=== PATIENT | male | born 1955 | race Caucasian/White ===

== ENCOUNTER 2020-01-31 08:47 | Inpatient (IN) | payer OTHER ==
--- NOTE | 2020-01-31 09:03 | BHS.RME ---
Substance Use & Tx History - Substance Use History Alcohol Substance amount: 1/2 pint vodka Frequency of use: Daily Substance route: Oral Date of Last Use: 01/31/20 Xanax Substance amount: 1 mg 2 tab s Frequency of use: Daily Substance route: Oral Date of Last Use: 01/30/20 Physical/Psych/Mental Status - Behavior General Behavior: Increased activity (restlessness, agitation) Eye Contact: Normal - Cooperativeness Cooperativeness: Cooperative - Thinking Thought Processes: Tight, Logical, Goal Directed Thought content: Future oriented - Physical Health Problems Is patient presently having any pain?: No Does patient presently have any injuries (include location): No Does patient currently have a fever: No Is patient : No CIWA Nausea/Vomitin-No Nausea/No Vomiting Muscle Tremors: 1-None Visible, but [place] Anxiety: 3 Agitation: 3 Paroxysmal Sweats: 4-Forehead w/Sweat Beads Orientation: 0-Oriented Tacttile Disturbances: 0-None Auditory Disturbances: 0-None Visual Disturbances: 0-None Headache: 0-None Present CIWA-Ar Total Score: 11
--- NOTE | 2020-01-31 09:48 | HP ---
CIWA Score Nausea/Vomitin-No Nausea/No Vomiting Muscle Tremors: 1-None Visible, but [place] Anxiety: 3 Agitation: 3 Paroxysmal Sweats: 4-Forehead w/Sweat Beads Orientation: 0-Oriented Tacttile Disturbances: 0-None Auditory Disturbances: 0-None Visual Disturbances: 0-None Headache: 0-None Present CIWA-Ar Total Score: 11 - Admission Criteria OASAS Guidelines: Admission for Medically Managed Detox: Requires at least one of the followin. CIWA greater than 12 2. Seizures within the past 24 hours 3. Delirium tremens within the past 24 hours 4. Hallucinations within the past 24 hours 5. Acute intervention needed for co occurring medical disorder 6. Acute intervention needed for co occurring psychiatric disorder 7. Severe withdrawal that cannot be handled at a lower level of care (continued vomiting, continued diarrhea, abnormal vital signs) requiring intravenous medication and/or fluids 8. Admitting History and Physical - Admission Chief Complaint: " I need help with alcohol." History of Present Illness: 64 year old male with history of alcohol dependence who has never been in treatment before. He has been drinking to excess and worse in last 3 years. 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 He is followed by Dr. Langley for 40 years and understands the addictive potential for benzodiazepine. 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 Xanax Substance amount: 1 mg 2 tab s Frequency of use: Daily Substance route: Oral Date of Last Use: 01/30/20 PMH: Tinnitus Psurg: Left leg Lipoma resected Psych: Anxiety and Panic Disorder (xanax 1 mg BID prn.) Lives in [facility] with No legal problems. CIWA=11 due to Xanax may have artificially suppressed score LAURA=0.034 Patient meets criteria for detox due to poor recovery environment, poor insight into his disorder, high risk of relapse and intoxication almost every night. History Source: Patient Limitations to Obtaining History: No Limitations - Smoking History Smoking history: Former smoker Have you smoked in the past 12 months: No - Alcohol/Substance Use Hx Alcohol Use: Yes Number of Drinks Daily: 5 Date of Last Use: 01/30/20 - Social History Usual Living Arrangement: Yes: With Spouse Do you think of yourself as: Straight/Heterosexual ADL: Independent Occupation: retired History of Recent Travel: No Admission [facility] Allergies/Adverse Reactions: Allergies Allergy/AdvReac Type Severity Reaction Status Date / Time codeine Allergy Verified 01/31/20 09:23 Exam Limitations: No Limitations - Ebola screening Have you traveled outside of the country in the last 21 days: No Have you had contact with anyone from an Ebola affected area: No Have you been sick,other than usual withdrawal symptoms: No Do you have a fever: No - Review of Systems Constitutional: No Symptoms Reported EENT: reports: No Symptoms Reported Cardiac: reports: No Symptoms Reported GI: reports: No Symptoms Reported : reports: No Symptoms Reported Musculoskeletal: reports: No Symptoms Reported Integumentary: reports: No Symptoms Reported Neuro: reports: No Symptoms reported, Tremors Endocrine: reports: No Symptoms Reported Hematology: reports: No Symptoms Reported Psychiatric: reports: Judgement Intact, Orientated x3, Agitated, Anxious Other Systems: Reviewed and Negative Patient History - Smoking Cessation Smoking history: Former smoker Have you smoked in the past 12 months: No Hx Chewing Tobacco Use: No Initiated information on smoking cessation: No - Substances abused Alprazolam (Xanax) Substance route: Oral Frequency: Daily (1/2 pint) Amount used: 1 mg bid Age of first use: 24 Date of last use: 01/30/20 Alcohol Substance route: Oral Frequency: Daily (1/2 pint vodka) Amount used: 1/2 pint vodka Age of first use: 59 Date of last use: 01/30/20 Screened but not Admitted - Documentation of Visit Screened but not Admitted: No Breathalyzer - Breathalyzer Breathalyzer: 0.034 Vital Signs - Vital Signs Vital signs refused: No Temperature: 97.4 F Temperature source: Oral Pulse Rate: 66 Respiratory Rate: 18 Blood Pressure: 177/91 BP Location: Left Arm Blood Pressure position: Sitting - Height Height: 5 ft 9 in - Weight Weight: 204 lb Weight measurement method: Standing scale - BMI Body Mass Index (BMI): 30.1 - Bowel Function Bowel Movement: No Urine Drug Screen - Control Is test valid?: Yes - Results Drug screen NEGATIVE: No Urine drug screen results: BZO-Benzodiazepines Inpatient Rehab Admission - Rehab Decision to Admit Inpatient rehab admission?: No
[2020-01-31 09:50] VITALS: BMI 30.1
[2020-01-31] MEDS ORDERED: MAGNESIUM CITRATE 300 ML BOTTLE PO PRN (09:57)
[2020-01-31] MEDS ORDERED: BISMUTH SUBSALICYLATE 524 MG/30 ML UD PO PRN (09:57)
[2020-01-31] MEDS ORDERED: MAG HYDROX/AL HYDROX/SIMETH 30 ML UNIT-DOSE CUP PO PRN (09:57)
[2020-01-31] MEDS ORDERED: METHOCARBAMOL 500 MG TABLET PO PRN (09:57)
[2020-01-31] MEDS ORDERED: IBUPROFEN 400 MG TABLET (FP) PO PRN (09:57)
[2020-01-31] MEDS ORDERED: MAGNESIUM HYDROX 2400MG/30ML ORAL SUSPENSION 30 ML CUP PO PRN (09:57)
[2020-01-31] MEDS ORDERED: ACETAMINOPHEN 325 MG TABLET (FP) PO PRN ×2 (09:57)
[2020-01-31] MEDS ORDERED: MENTHOL/PHENOL 1 EACH UD MM PRN (09:57)
[2020-01-31] MEDS ORDERED: chlordiazePOXIDE HCL 25 MG CAPSULE PO PRN (09:57)
[2020-01-31] MEDS ORDERED: NICOTINE POLACRILEX 2 MG GUM BUC PRN (09:57)
[2020-01-31] MEDS ORDERED: DULoxetine HCL 60 MG CAPSULE.DR PO SCH (10:00)
[2020-01-31] MEDS ORDERED: NICOTINE 7 MG/24 HOURS TOPICAL PATCH TD SCH (10:00)
[2020-01-31] MEDS ORDERED: PRENATAL VITAMINS W/ FOLIC ACID TABLET (FP) PO SCH (10:00)
[2020-01-31] MEDS ORDERED: ONDANSETRON *ODT* 4 MG TABLET SL ONE (10:30)
[2020-01-31] MEDS ORDERED: LOSARTAN POTASSIUM 25 MG TABLET PO SCH (10:30)
[2020-01-31 10:38] VITALS: BP 190/107; PULSE 73; TEMP 98.6
[2020-01-31] MEDS: hydrOXYzine PAMOATE 25 MG CAPSULE (FP) PO SCH ×2 (10:58→13:18)
[2020-01-31] MEDS ORDERED: chlordiazePOXIDE HCL 25 MG CAPSULE PO SCH (11:00)
--- NOTE | 2020-01-31 13:03 | CONSULT ---
[facility] Psychiatric Consult - Data Date of interview: 01/31/20 Admission source: [facility] Identifying data: Junior Technical Writer informed by nursing staff that patient left AMA.
--- NOTE | 2020-01-31 13:46 | DS ---
[facility] Detox Discharge Summary Admission Date: 01/31/20 Discharge Date: 01/31/20 - History Present History: Alcohol Dependence Additional Comments: 64 years old male was admitted on 01/31/20 for alcohol and benzo withdrawal sx management treated with librium detoc regiment mr oliveros has received librium 50 mg po around 11 am feels much better after lunch and insists to leave the detox unit that "I do not have alcohol problem"" my withdrawal not that bad to stay in the hospital" mr oliveros is taking xanax 1 mg po bid mr oliveros has received 180 tablets xanax 1 mg on 01/14/20 of 90days mr oliveros insists to leave the detox unit to go home resume xanax as prescribed Pertinent Past History: tme for discharge 74 minutes treatment team met with mr oliveros to discuss the benefits of librium regiment completion mr oliveros insists to leave the detox - Physical Exam Results Vital Signs: Vital Signs Temperature 98.6 F 01/31/20 10:35 Pulse Rate 73 01/31/20 10:35 Respiratory Rate 18 01/31/20 10:35 Blood Pressure 190/107 H 01/31/20 10:35 O2 Sat by Pulse Oximetry (%) 97 01/31/20 10:35 medical history of hypertension mr oliveros received metoprolol losartan while in detox encourage mr oliveros to be re evaluated by the primary care provider for antihypertensive medications adjustment health teaching on risks of uncontrolled bp Pertinent Admission Physical Exam Findings: alcohol and benzo withdrawal lab pending - Treatment Hospital Course: Detox Protocol Followed, Responded well (mr oliveros responded to librium very well states that he is feeling much better and no need for alcohol detox) Patient has Accepted a Rehab Referral to: [facility] - Medication Discharge Medications: Ambulatory Orders Alprazolam 1 mg PO BID 01/31/20 Atorvastatin Calcium 20 mg PO HS 01/31/20 Duloxetine HCl 120 mg PO DAILY 01/31/20 Losartan Potassium 25 mg PO DAILY 01/31/20 Metoprolol Succinate 100 mg PO DAILY 01/31/20 - Diagnosis (1) Alcohol dependence with withdrawal, uncomplicated Current Visit: No Status: Acute (2) Sedative, hypnotic or anxiolytic dependence, uncomplicated Current Visit: No Status: Acute (3) Hypertension Current Visit: Yes Status: Chronic Qualifiers: Hypertension type: essential hypertension Qualified Code(s): I10 - Essential (primary) hypertension - AMA Did Patient Leave Against Medical Advice: Yes CIWA Score - CIWA Score Nausea/Vomitin-No Nausea/No Vomiting Muscle Tremors: 1-None Visible, but [place] Anxiety: 4-Mod. Anxious/Guarded Agitation: 3 Paroxysmal Sweats: 4-Forehead w/Sweat Beads Orientation: 0-Oriented Tacttile Disturbances: 0-None Auditory Disturbances: 0-None Visual Disturbances: 0-None Headache: 0-None Present CIWA-Ar Total Score: 12
[2020-01-31 14:32] LABS: HEMATOCRIT 46.8 % (35.4-49); HEMOGLOBIN 15.4 GM/dL (11.7-16.9); MCH 30.6 pg (25.7-33.7); MCHC 32.9 g/dl (32.0-35.9); MEAN PLT VOLUME 7.9 fl (7.5-11.1); PLATELET COUNT 239 K/MM3 (134-434); RBC 5.03 M/mm3 (4.00-5.60); RDW 12.6 % (11.9-15.9); WHITE BLOOD COUNT 4.3 K/mm3 (4.0-10.0)
[2020-01-31 14:47] LABS: ALBUMIN 3.6 g/dl (3.4-5.0); BILIRUBIN,TOTAL 0.7 mg/dL (0.2-1); BLOOD UREA NITROGEN 14.7 mg/dL (7-18); CALCIUM 8.6 mg/dL (8.5-10.1); CREATININE 1.1 mg/dL (0.55-1.3); POTASSIUM 3.9 mmol/L (3.5-5.1); TOT PROT 7.5 g/dl (6.4-8.2)
--- NOTE | 2020-01-31 16:58 | EKG ---
Test Reason : Blood Pressure : / mmHG Vent. Rate : 075 BPM Atrial Rate : 075 BPM P-R Int : 164 ms QRS Dur : 092 ms QT Int : 398 ms P-R-T Axes : 059 040 021 degrees QTc Int : 444 ms NORMAL SINUS RHYTHM NORMAL ECG NO PREVIOUS ECGS AVAILABLE Confirmed by TEODORO GRAVES MD ([id number]) on 01/31/2020 4:57:56 PM Referred By: Confirmed By:TEODORO GRAVES MD
[2020-01-31] MEDS ORDERED: MELATONIN 5 MG TABLETS PO SCH (22:00)
[2020-01-31] MEDS ORDERED: ATORVASTATIN CA 20 MG TABLET (FP) PO SCH (22:00)
[2020-01-31] MEDS ORDERED: THIAMINE HCL 100 MG TABLET (FP) PO SCH (22:00)
[2020-02-02] MEDS ORDERED: chlordiazePOXIDE HCL 25 MG CAPSULE PO SCH (05:00)
[2020-02-03] MEDS ORDERED: chlordiazePOXIDE HCL 10 MG CAPSULE PO PRN
[2020-02-03] MEDS ORDERED: chlordiazePOXIDE HCL 10 MG CAPSULE PO SCH (05:00)
[2020-02-04] MEDS ORDERED: chlordiazePOXIDE HCL 10 MG CAPSULE PO SCH (05:00)
[2020-02-05] MEDS ORDERED: chlordiazePOXIDE HCL 10 MG CAPSULE PO ONE (05:00)
== END 2020-01-31 12:20 | disposition left against medical advice (07) | DRG 894 ==
LOC: YASAS 08:47 → Y3N 09:48
PROVIDERS: ADMIT Allergy & Immunology; ATTEND Allergy & Immunology
PROC: HZ2ZZZZ Detoxification Services for Substance Abuse Treatment (ICD-10-PCS; principal; 2020-01-31)
DX: F10.230 Alcohol dependence with withdrawal, uncomplicated (principal); F13.230 Sedative, hypnotic or anxiolytic dependence with withdrawal, uncomplicated; F17.211 Nicotine dependence, cigarettes, in remission; F41.0 Panic disorder [episodic paroxysmal anxiety]; I10 Essential (primary) hypertension; Z88.5 Allergy status to narcotic agent
CPT/HCPCS: 36415; 80053; 85027; 86780; 93005; 93010; U0003